=== PATIENT | female | born 1990 | race Caucasian/White ===

== ENCOUNTER 2017-12-21 18:39 | Emergency (ER) | payer OTHER ==
[2017-12-21 20:00] LABS: URINE HCG POC HCG NEGATIVE (Negative)
[2017-12-21] MEDS: PROCHLORPERAZINE 10 MG/2 ML VIAL. IV (20:00)
[2017-12-21] MEDS: diphenhydrAMINE 50 MG/ML VIAL IVP (20:01)
[2017-12-21] MEDS: KETOROLAC 30 MG/ML INJ. IV (20:01)
[2017-12-21] MEDS: SUMAtriptan. 6 MG/0.5 ML VIAL SQ (20:01)
[2017-12-21] MEDS: IV NORMAL SALINE 1000ML BAG 1,000 ML IV (20:02)
[2017-12-21] MEDS ORDERED: PROMETHAZINE 12.5 MG in IV NORMAL SALINE 50ML 50 ML IV (22:00)
== END 2017-12-21 21:50 | disposition home or self-care (01) ==
LOC: ER 18:39
DX: R11.2 Nausea with vomiting, unspecified (principal); R51 Headache; H53.149 Visual discomfort, unspecified; G43.909 Migraine, unspecified, not intractable, without status migrainosus; Z88.0 Allergy status to penicillin; Z88.1 Allergy status to other antibiotic agents; Z88.2 Allergy status to sulfonamides
CPT/HCPCS: 81025; 96361; 96372; 96374; 96375; 99284-25; J0780; J1200; J1885; J3030; J7030